=== PATIENT | male | born 1955 | race Caucasian/White ===

== ENCOUNTER 2021-05-01 09:58 | Outpatient (CLI) | payer OTHER, BC, SELFPAY | END 2021-05-01 09:59 | disposition home or self-care (01) | PROVIDERS: Visit Provider Emergency Medicine | DX: I96 Gangrene, not elsewhere classified (principal); E11.621 Type 2 diabetes mellitus with foot ulcer; L97.522 Non-pressure chronic ulcer of other part of left foot with fat layer exposed | CPT/HCPCS: 11044; 87070; 87077; 87176; 87186; 87205; 99203; G0463 ==

== ENCOUNTER 2021-05-03 14:38 | Outpatient (CLI) | payer OTHER, SELFPAY ==
--- NOTE | 2021-05-03 14:47 | MR_ITS ---
WS: [id number] MRI LEFT FOOT with and without CONTRAST. COMPARISON: None Multiplanar, multisequence imaging is performed with and without contrast. Sagittal and axial T1 fat sat sequences post-MultiHance 20 cc IV. History: Soft tissue ulcer RIGHT second toe. Abnormal signal in the proximal and middle phalanx of the second toe. On the T1 sequences there is de creased signal and on the T2 sequences increased signal throughout. There is enhancement suggesting o steomyelitis. There is a small amount of soft tissue induration and enhancement. There is a focal ulc er noted along the plantar surface of the second toe at the level of the PIP joint. This ulcer measur es approximately 7 mm. No additional signal abnormalities within the bones of the foot. There is also abnormal signal within the medial cuneiform. Signal is probably related to osteonecrosi s due to its appearance. No fracture. MR/MR foot LT wo/w con [id number] IMPRESSION: 1. Osteomyelitis involving the proximal and middle phalanges of the second toe with overlying 7 mm soft tissue ulcer along the plantar surface. 2. No additional osteomyelitis. 3. Medial cuneiform osteonecrosis.
== END 2021-05-03 14:39 | disposition home or self-care (01) ==
LOC: RADSHAW 14:42
PROVIDERS: PCP Family Medicine; Visit Provider Emergency Medicine
DX: E11.621 Type 2 diabetes mellitus with foot ulcer (principal); M86.9 Osteomyelitis, unspecified; M87.875 Other osteonecrosis, left foot
CPT/HCPCS: 73720; A9577

== ENCOUNTER 2021-05-10 10:22 | Outpatient (CLI) | payer OTHER, SELFPAY | END 2021-05-10 10:23 | disposition home or self-care (01) | LOC: WOUND 10:22 | PROVIDERS: PCP Family Medicine; Visit Provider Thoracic Surgery (Cardiothoracic Vascular Surgery) | DX: I96 Gangrene, not elsewhere classified (principal); E11.621 Type 2 diabetes mellitus with foot ulcer; L97.521 Non-pressure chronic ulcer of other part of left foot limited to breakdown of skin | CPT/HCPCS: 97597 ==

== ENCOUNTER 2021-05-17 13:04 | Outpatient (CLI) | payer OTHER, SELFPAY | END 2021-05-17 13:05 | disposition home or self-care (01) | PROVIDERS: PCP Family Medicine; Visit Provider Nurse Practitioner Family | DX: E11.621 Type 2 diabetes mellitus with foot ulcer (principal); L97.524 Non-pressure chronic ulcer of other part of left foot with necrosis of bone | CPT/HCPCS: 11044 ==

== ENCOUNTER 2021-05-24 10:10 | Outpatient (CLI) | payer OTHER, SELFPAY ==
[2021-05-24 10:45] LABS: Basophils % 0.5 %; Eosinophils # 0.2 10^3/uL (0.0-0.8); Hematocrit 37.8 % (42.0-52.0); Hemoglobin 12.5 g/dL (11.7-16.6); Lymphocytes # 1.2 10^3/uL (0.8-4.8); Lymphocytes % 15.9 %; Mean Corpuscular HGB Conc 33.1 g/dL (30.0-36.0); Mean Corpuscular Hemoglobin 31.5 pg (28.0-34.0); Mean Corpuscular Volume 95.2 fl (80-94); Mean Platelet Volume 11.1 fL (7.4-10.4); Monocytes # 0.5 10^3/uL (0.2-0.9); Neutrophils # 5.65 10^3/uL (1.8-7.7); Neutrophils % 73.2 %; Nucleated Red Blood Cells % 0 %; Platelet Count 86 10^3/cmm (130-400); Red Blood Count 3.97 10^6/uL (4.1-5.3); White Blood Count 7.7 10^3/uL (4.0-10.0)
[2021-05-24 10:53] LABS: Erythrocyte Sedimentation Rate 7 mm/hr (0-10)
[2021-05-24 10:55] LABS: Alanine Aminotransferase 19 U/L (0-41); Albumin Level 4.1 g/dL (3.5-5.2); Alkaline Phosphatase 67 IU/L (40-130); Anion Gap 14.9 (5-19); Aspartate Amino Transferase 15 U/L (0-40); Blood Urea Nitrogen 36 mg/dL (8-23); C Reactive Protein 5.6 mg/L (0.0-4.9); Calcium 8.7 mg/dL (8.5-10.5); Carbon Dioxide 28 mmol/L (22-29); Chloride 103 mmol/L (98-107); Globulin 3.5 g/dL (1.3-4.6); Glomerular Filtration Rate 43.9 mL/min (90-130); Glucose 140 mg/dL (65-115); Osmolality Calculated 303 mOsm/kg (285-295); Potassium 4.9 mmol/L (3.5-5.1); Sodium 141 mmol/L (136-145); Total Bilirubin 0.5 mg/dL (0.15-1.2); Total Protein 7.6 g/dL (6.6-8.7)
== END 2021-05-24 10:11 | disposition home or self-care (01) ==
LOC: LAB 10:13
PROVIDERS: PCP Family Medicine; Visit Provider Thoracic Surgery (Cardiothoracic Vascular Surgery)
DX: E11.621 Type 2 diabetes mellitus with foot ulcer (principal)
CPT/HCPCS: 36415; 80053; 85025; 85651; 86140

== ENCOUNTER 2021-05-24 10:42 | Outpatient (CLI) | payer OTHER, SELFPAY | END 2021-05-24 10:43 | disposition home or self-care (01) | LOC: WOUND 10:43 | PROVIDERS: PCP Family Medicine; Visit Provider Nurse Practitioner Family | DX: I96 Gangrene, not elsewhere classified (principal); E11.621 Type 2 diabetes mellitus with foot ulcer; L97.522 Non-pressure chronic ulcer of other part of left foot with fat layer exposed | CPT/HCPCS: 11042 ==

== ENCOUNTER 2021-05-31 10:43 | Outpatient (CLI) | payer OTHER, SELFPAY | END 2021-05-31 10:44 | disposition home or self-care (01) | LOC: WOUND 10:44 | PROVIDERS: PCP Family Medicine; Visit Provider Thoracic Surgery (Cardiothoracic Vascular Surgery) | DX: I96 Gangrene, not elsewhere classified (principal); E11.621 Type 2 diabetes mellitus with foot ulcer; L97.521 Non-pressure chronic ulcer of other part of left foot limited to breakdown of skin | CPT/HCPCS: 97597 ==

== ENCOUNTER 2021-06-07 15:37 | Outpatient (CLI) | payer OTHER, SELFPAY | END 2021-06-07 15:38 | disposition home or self-care (01) | LOC: WOUND 15:38 | PROVIDERS: PCP Family Medicine; Visit Provider Thoracic Surgery (Cardiothoracic Vascular Surgery) | DX: I96 Gangrene, not elsewhere classified (principal); E11.621 Type 2 diabetes mellitus with foot ulcer; L97.521 Non-pressure chronic ulcer of other part of left foot limited to breakdown of skin | CPT/HCPCS: 97597 ==

== ENCOUNTER 2021-06-14 10:50 | Outpatient (CLI) | payer OTHER, SELFPAY | END 2021-06-14 10:51 | disposition home or self-care (01) | LOC: WOUND 10:51 | PROVIDERS: PCP Family Medicine; Visit Provider Nurse Practitioner Family | DX: Z09 Encounter for follow-up examination after completed treatment for conditions other than malignant neoplasm (principal) | CPT/HCPCS: 99213 ==

== ENCOUNTER 2021-07-12 16:07 | Outpatient (CLI) | payer OTHER, SELFPAY | END 2021-07-12 16:08 | disposition home or self-care (01) | LOC: WOUND 16:07 | PROVIDERS: PCP Family Medicine; Visit Provider Thoracic Surgery (Cardiothoracic Vascular Surgery) | DX: E11.621 Type 2 diabetes mellitus with foot ulcer (principal); L97.512 Non-pressure chronic ulcer of other part of right foot with fat layer exposed | CPT/HCPCS: 11042 ==

== ENCOUNTER 2021-07-18 11:43 | Outpatient (CLI) | payer OTHER, SELFPAY ==
--- NOTE | 2021-07-18 11:53 | XR_ITS ---
WS: [id number] Exam: XR toe LT min 2V [id number] Date/Time of Exam: 07/18/2021 12:13 PM Reason For Exam: TYPE II DM/W/FOOT ULCER/?OSTEOMYELITIS The second toe is targeted for radiographic evaluation. No fracture or dislocation. No bone destruction identified. There is soft tissue swelling. XR/XR toe LT min 2V [id number] IMPRESSION: 1. Soft tissue swelling. No fracture or bone destruction. 2. There may be skin ulceration of the distal soft tissues of the second toe.
== END 2021-07-18 11:44 | disposition home or self-care (01) ==
PROVIDERS: PCP Family Medicine; Visit Provider Thoracic Surgery (Cardiothoracic Vascular Surgery)
DX: E11.621 Type 2 diabetes mellitus with foot ulcer (principal)
CPT/HCPCS: 73660

== ENCOUNTER 2021-07-19 10:35 | Outpatient (CLI) | payer OTHER, SELFPAY | END 2021-07-19 10:36 | disposition home or self-care (01) | LOC: WOUND 10:36 | PROVIDERS: PCP Family Medicine; Visit Provider Thoracic Surgery (Cardiothoracic Vascular Surgery) | DX: E11.621 Type 2 diabetes mellitus with foot ulcer (principal); L97.519 Non-pressure chronic ulcer of other part of right foot with unspecified severity | CPT/HCPCS: 99212 ==

== ENCOUNTER 2021-07-26 14:29 | Outpatient (CLI) | payer OTHER, SELFPAY | END 2021-07-26 14:30 | disposition home or self-care (01) | LOC: WOUND 14:30 | PROVIDERS: PCP Family Medicine; Visit Provider Thoracic Surgery (Cardiothoracic Vascular Surgery) | DX: E11.621 Type 2 diabetes mellitus with foot ulcer (principal); L97.512 Non-pressure chronic ulcer of other part of right foot with fat layer exposed | CPT/HCPCS: 97597 ==

== ENCOUNTER 2021-08-09 08:19 | Outpatient (CLI) | payer OTHER, SELFPAY | END 2021-08-09 08:20 | disposition home or self-care (01) | LOC: WOUND 08:20 | PROVIDERS: PCP Family Medicine; Visit Provider Thoracic Surgery (Cardiothoracic Vascular Surgery) | DX: E11.621 Type 2 diabetes mellitus with foot ulcer (principal); L97.512 Non-pressure chronic ulcer of other part of right foot with fat layer exposed; I96 Gangrene, not elsewhere classified | CPT/HCPCS: 11044; 97597 ==

== ENCOUNTER → 2021-08-16 09:30 | Outpatient (BNVA) | payer OTHER, SELFPAY | PROVIDERS: PCP Family Medicine; Visit Provider Thoracic Surgery (Cardiothoracic Vascular Surgery) | DX: E11.621 Type 2 diabetes mellitus with foot ulcer (principal); L97.512 Non-pressure chronic ulcer of other part of right foot with fat layer exposed | CPT/HCPCS: 97597 ==

== ENCOUNTER → 2021-08-30 10:05 | Outpatient (BNVA) | payer OTHER, SELFPAY | PROVIDERS: PCP Family Medicine; Visit Provider Thoracic Surgery (Cardiothoracic Vascular Surgery) | DX: E11.621 Type 2 diabetes mellitus with foot ulcer (principal); I96 Gangrene, not elsewhere classified; L97.512 Non-pressure chronic ulcer of other part of right foot with fat layer exposed | CPT/HCPCS: 99212; A6212 ==

== ENCOUNTER → 2021-09-13 10:29 | Outpatient (BNVA) | payer OTHER, SELFPAY | PROVIDERS: PCP Family Medicine; Visit Provider Nurse Practitioner Family | DX: E11.621 Type 2 diabetes mellitus with foot ulcer (principal); I96 Gangrene, not elsewhere classified; L97.522 Non-pressure chronic ulcer of other part of left foot with fat layer exposed | CPT/HCPCS: 99212 ==

== ENCOUNTER → 2023-11-13 11:39 | Outpatient (BNVA) | payer OTHER, SELFPAY | PROVIDERS: PCP Family Medicine; Referring Provider Nurse Practitioner; Visit Provider Surgery | DX: Z12.11 Encounter for screening for malignant neoplasm of colon (principal) | CPT/HCPCS: 99213 ==

== ENCOUNTER 2024-01-29 20:00 | Outpatient (CLI) | payer OTHER, SELFPAY | END 2024-01-29 20:01 | disposition home or self-care (01) | LOC: SLEEP 23:22 | PROVIDERS: PCP Family Medicine; Visit Provider Nurse Practitioner | DX: G47.33 Obstructive sleep apnea (adult) (pediatric) (principal) | CPT/HCPCS: 95810 ==

== ENCOUNTER 2024-03-17 20:00 | Outpatient (CLI) | payer OTHER, SELFPAY | END 2024-03-17 20:01 | disposition home or self-care (01) | LOC: SLEEP 21:32 | PROVIDERS: PCP Family Medicine; Visit Provider Nurse Practitioner | DX: G47.33 Obstructive sleep apnea (adult) (pediatric) (principal); Z99.89 Dependence on other enabling machines and devices | CPT/HCPCS: 95811 ==

== ENCOUNTER 2024-06-11 08:27 | Day surgery (SDC) | payer OTHER, SELFPAY ==
[2024-06-11 08:42] VITALS: BP 158/95; PULSE 63; RESP 16; TEMP 36.2; O2SAT 98
--- NOTE | 2024-06-11 08:50 | ANES.PREANE2 ---
Pre-Anesthetic Assessment Height/Weight: Height 1.93 m Weight 106.594 kg Temp Pulse Resp BP Pulse Ox 97.1 F L 63 16 158/95 98 06/11/24 08:42 06/11/24 08:42 06/11/24 08:42 06/11/24 08:42 06/11/24 08:42 Operation Date: 06/11/24 09:40 Proposed Procedures p Colonoscopy- 50930,G0121,Z12.11(Not Applicable) - Venancio Sabillon MD Last intake: Intake Last Liquid Date 06/10/24 Last Liquid Time 21:00 Last Solid Date 06/09/24 Last Solid Time 18:00 Social No alcohol and No tobacco Exam alert, oriented x 3, clear to auscultation bilaterally and regular rate & rhythm Airway Submandibular: within normal limits Cervical ROM: within normal limits Mallampati: Class I Dentition: chipped History/ROS No significant complaints Pulmonary Sleep Apnea (CPAP) CV/HEM Congestive Heart Failure and Hypertension Hx of cardiac stent (2019), Pacemaker and Defib.2021 ([employer]), EF 25-30% None reported Hepatic None reported GI None reported Metabolic Diabetes Mellitus and Hyperlipidemia [facility] [place] Lower Back Pain Neuropsych None reported Anesthetic Plan ASA status: 3 Anesthesia: General and MAC Medications/Allergies Home Medications Medication Instructions Recorded Confirmed Last Taken Type aspirin 81 mg tablet,delayed 81 mg PO DAILY 11/13/23 06/09/24 06/08/24 History release (Adult Aspirin Regimen) carvedilol 25 mg tablet 25 mg PO BID 11/13/23 06/09/24 06/11/24 History clopidogrel 75 mg tablet (Plavix) 75 mg PO DAILY 11/13/23 06/09/24 06/05/24 History empagliflozin 10 mg tablet 10 mg PO DAILY 11/13/23 06/09/24 06/09/24 History (Jardiance) ezetimibe 10 mg tablet (Zetia) 10 mg PO DAILY 11/13/23 06/09/24 06/09/24 History sacubitril 97 mg-valsartan 103 mg 1 tab PO BID 11/13/23 06/09/24 06/09/24 History tablet (Entresto) Allergies Allergy/AdvReac Type Severity Reaction Status Date / Time No Known Allergies Allergy Verified 08/16/21 09:52 PFS Anesthesia Social History Smoking and tobacco/nicotine status: never used tobacco/nicotine Data Anesthesia Cardiac Studies: No Data to Display
[2024-06-11 08:52] LABS: Glucose Point of Care 100 mg/dL (70-110)
[2024-06-11] MEDS: sodium chloride 0.9% 500 ML 15 ML IV (08:52)
--- NOTE | 2024-06-11 09:01 | W.PM.OPSFHP ---
Same Day Surgery H&P Indication for Procedure/HPI DATE OF PROCEDURE: June 11, 2024 CHIEF COMPLAINT/INDICATIONFOR SURGICAL PROCEDURE: need for screening colonoscopy PREOP DIAGNOSIS: need for screening colonoscopy PLANNED PROCEDURE: Operation Date: 06/11/24 09:40 Proposed Procedures p Colonoscopy- 05508,G0121,Z12.11(Not Applicable) - Venancio Sabillon MD Medications/Allergies* Home Medications Medication Instructions Recorded Confirmed Type aspirin 81 mg tablet,delayed 81 mg PO DAILY 11/13/23 06/09/24 History release (Adult Aspirin Regimen) carvedilol 25 mg tablet 25 mg PO BID 11/13/23 06/09/24 History clopidogrel 75 mg tablet (Plavix) 75 mg PO DAILY 11/13/23 06/09/24 History empagliflozin 10 mg tablet 10 mg PO DAILY 11/13/23 06/09/24 History (Jardiance) ezetimibe 10 mg tablet (Zetia) 10 mg PO DAILY 11/13/23 06/09/24 History sacubitril 97 mg-valsartan 103 mg 1 tab PO BID 11/13/23 06/09/24 History tablet (Entresto) Allergies/Adverse Reactions Allergy/AdvReac Type Severity Reaction Status Date / Time No Known Allergies Allergy Verified 08/16/21 09:52 Current Medications: Generic Name Dose Route Start Last Admin Trade Name Freq PRN Reason Stop Dose Admin Sodium Chloride 500 mls @ 15 mls/hr 06/11/24 08:28 06/11/24 08:52 Sodium Chloride 0.9% IV 06/12/24 08:27 15 mls/hr .Q24H PRN Administration COLONOSCOPY FLUIDS Pertinent History/Comorbid Conditions* Social History Smoking and tobacco/nicotine status: never used tobacco/nicotine Pertinent Exam Findings alert, oriented x 3, clear to auscultation bilaterally and regular rate & rhythm Recommendations Surgery/Procedure today Coding Level of Care Code Acute Code for Chg Fwd
[2024-06-11 09:32] VITALS: BP 124/71; PULSE 60; RESP 16; TEMP 36.3; O2SAT 97
[2024-06-11 09:48] VITALS: BP 134/69; PULSE 61; RESP 18; O2SAT 97
--- NOTE | 2024-06-11 10:03 | ANE.PACU2 ---
Inpatient post-anesthesia follow up: Airway intact: Yes Vital signs: Temperature 97.3 F Pulse Rate 61 Respiratory Rate 18 Blood Pressure 134/69 Pulse Oximetry 97 Oxygen Delivery Me thod Room Air Oxygen Flow Rate Fraction of Inspir ed Oxygen Hydration adequate: Yes Nausea and vomiting: No Pain level: 1 Mental status: Baseline
== END 2024-06-11 10:03 | disposition home or self-care (01) ==
PROVIDERS: PCP Family Medicine; Visit Provider Surgery
PROC: 0DJD8ZZ Inspection of Lower Intestinal Tract, Via Natural or Artificial Opening Endoscopic (ICD-10-PCS; CPT 45378; principal; 2024-06-11 09:40)
DX: Z12.11 Encounter for screening for malignant neoplasm of colon (principal); Z79.82 Long term (current) use of aspirin; D12.2 Benign neoplasm of ascending colon; D12.3 Benign neoplasm of transverse colon; G47.30 Sleep apnea, unspecified; Z99.89 Dependence on other enabling machines and devices; I11.0 Hypertensive heart disease with heart failure; I50.9 Heart failure, unspecified; Z95.5 Presence of coronary angioplasty implant and graft; Z95.0 Presence of cardiac pacemaker; E78.5 Hyperlipidemia, unspecified
CPT/HCPCS: 36416; 45380; 82962; 88305; J2371; J2704; J7040